=== PATIENT | female | born 1955 | race African-American/Black ===

== ENCOUNTER 2022-04-04 12:13 | Inpatient (IN) | payer OTHER ==
[~2022-04-04] VITALS: Ht 160 cm; Wt 63.5 kg
[2022-04-04 12:33] VITALS: BP_SYST 236
[2022-04-04 13:07] LABS: HEMOGLOBIN 14.5 g/dL (12.0-16.0); MEAN CORPUSCULAR HEMOGLOBIN 26 pg (27-31); MEAN CORPUSCULAR HGB CONC 34 % (32-36); MEAN CORPUSCULAR VOLUME 76 fL (79.0-98.0); PLATELET COUNT (AUTO) 196 K/uL (130-430); RED BLOOD CELL COUNT(AUTO) 5.69 MIL/uL (4.2-6.2); RED CELL DISTRIBUTION WIDTH 17.6 % (9.0-15.0)
[2022-04-04 13:08] LABS: WHITE BLOOD COUNT (AUTO) 6.4 K/uL (4.8-10.8)
[2022-04-04 13:17] LABS: ANION GAP 11 (5-15); CALCIUM 9.9 mg/dL (8.4-11.0); CHLORIDE 103 mmol/L (98-107); CREATININE 0.82 mg/dL (0.55-1.30); GLUCOSE 88 mg/dL (70-99); UREA NITROGEN, BLOOD 21 mg/dL (8-21)
[2022-04-04 13:26] LABS: ALANINE AMINOTRANSFERASE 29 U/L (12-78); ASPARTATE AMINOTRANSFERASE 25 U/L (10-37); GFR AFRICAN AMERICAN 89 mL/min (>90); TOTAL BILIRUBIN 0.9 mg/dL (0.0-1.0)
[2022-04-04] MEDS ORDERED: hydrALAZINE HCL 20 MG/ML VIAL IVP ONE ×2 (13:30→16:00)
[2022-04-04 13:50] LABS: ATYPICAL LYMPHOCYTES % 0 % (0-0); BAND % (MANUAL) 0 % (0-6); BASOPHILS % (MANUAL) 0 % (0-2); EOSINOPHILS % (MANUAL) 0 % (0-7); LYMPHOCYTES % (MANUAL) 32 % (20-46); MONOCYTES % (MANUAL) 12 % (0-11)
[2022-04-04 14:33] LABS: BILIRUBIN,URINE NEGATIVE (NEGATIVE); BLOOD, URINE NEGATIVE (NEGATIVE); CLARITY/URINE CLEAR (CLEAR); COLOR,URINE YELLOW (YELLOW); GLUCOSE,URINE NEGATIVE (NEGATIVE); KETONES,URINE 1+ (NEGATIVE); LEUKOCYTE ESTERASE ,URINE NEGATIVE (NEGATIVE); NITRITE, URINE NEGATIVE (NEGATIVE); PH,URINE 5.5 (5.0-8.0); PROTEIN URINE TRACE (NEGATIVE); UROBILINOGEN,URINE 0.2 (0.2-1.0)
[2022-04-04 14:43] LABS: BACTERIA,URINE None Seen /HPF (None Seen); MUCUS,URINE None Seen /LPF (None Seen); RBC,URINE NONE SEEN /HPF (0-3); WBC,URINE 0-3 /HPF (0-3)
[2022-04-04] MEDS ORDERED: hydrALAZINE HCL 20 MG/ML VIAL IVP PRN ×2 (15:15→17:15)
[2022-04-04] MEDS ORDERED: amLODIPine BESYLATE 10 MG TABLET PO ONE (17:15)
[2022-04-04] MEDS ORDERED: hydrALAZINE HCL 25 MG TABLET PO ONE (17:15)
[2022-04-04 19:00] VITALS: BP_SYST 143
[2022-04-04] MEDS ORDERED: HYDR-4038 PO (19:29)
[2022-04-04] MEDS ORDERED: DICL75TA5 PO (19:31)
[2022-04-04] MEDS ORDERED: HYDR25TA4 PO (19:32)
[2022-04-04] MEDS ORDERED: BENA40TA89 PO (19:32)
[2022-04-04] MEDS ORDERED: LIP20 PO (19:33)
[2022-04-04] MEDS ORDERED: hydrALAZINE HCL 25 MG TABLET PO SCH (22:00)
[2022-04-05] VITALS: BP_SYST 146
[2022-04-05] MEDS ORDERED: ACETAMINOPHEN 325 MG TABLET PO PRN (03:45)
[2022-04-05] MEDS ORDERED: NALOXONE HCL 0.4 MG/ML AMP (NARCAN) IVP PRN ×2 (03:45)
[2022-04-05] MEDS ORDERED: HYDROcodone/ACETAMIN 5-325 MG TAB (NORCO/ VICODIN) PO PRN (03:45)
[2022-04-05] MEDS ORDERED: HYDROcodone/ACETAMIN 10-325 MG TAB PO PRN (03:45)
[2022-04-05] MEDS ORDERED: ONDANSETRON HCL 4 MG/2 ML VIAL IVP PRN (03:45)
[2022-04-05] MEDS ORDERED: hydrALAZINE HCL 25 MG TABLET PO SCH (06:00)
[2022-04-05] MEDS ORDERED: NORMAL SALINE 5 ML DISP.SYRIN IVF SCH (06:00)
[2022-04-05] MEDS: NORMAL SALINE 5 ML DISP.SYRIN IVF SCH ×3 (06:40→21:52)
[2022-04-05 08:00] VITALS: BP_SYST 150
[2022-04-05 08:13] LABS: CREATININE 0.84 mg/dL (0.55-1.30)
[2022-04-05 08:36] LABS: HEMATOCRIT 40.4 % (36-48); HEMOGLOBIN 13.3 g/dL (12.0-16.0); MEAN CORPUSCULAR HEMOGLOBIN 25 pg (27-31); MEAN CORPUSCULAR HGB CONC 33 % (32-36); MEAN CORPUSCULAR VOLUME 75 fL (79.0-98.0); PLATELET COUNT (AUTO) 201 K/uL (130-430); RED BLOOD CELL COUNT(AUTO) 5.36 MIL/uL (4.2-6.2); RED CELL DISTRIBUTION WIDTH 17.4 % (9.0-15.0)
[2022-04-05] MEDS: DICLOFENAC SODIUM 25 MG TABLET.DR PO SCH ×2 (09:09→20:08)
[2022-04-05] MEDS: amLODIPine BESYLATE 10 MG TABLET PO SCH (09:10)
[2022-04-05] MEDS: lisinopriL 20 MG TABLET PO SCH ×2 (09:11→20:08)
[2022-04-05] MEDS: HYDROCHLOROTHIAZIDE 25 MG TABLET (HCTZ) PO SCH (09:11)
[2022-04-05 10:00] LABS: WHITE BLOOD COUNT (AUTO) 6.5 K/uL (4.8-10.8)
[2022-04-05 12:00] VITALS: BP_SYST 144
[2022-04-05 15:03] LABS: ATYPICAL LYMPHOCYTES % 0 % (0-0); BAND % (MANUAL) 0 % (0-6); BASOPHILS % (MANUAL) 0 % (0-2); EOSINOPHILS % (MANUAL) 2 % (0-7); LYMPHOCYTES % (MANUAL) 38 % (20-46); MONOCYTES % (MANUAL) 9 % (0-11)
[2022-04-05] MEDS: hydrALAZINE HCL 25 MG TABLET PO SCH ×2 (15:45→21:51)
[2022-04-05 16:00] VITALS: BP_SYST 142
[2022-04-05 19:48] VITALS: BP_SYST 137
[2022-04-05] MEDS ORDERED: ATORVASTATIN 20 MG TABLET PO SCH (21:00)
[2022-04-05 23:36] VITALS: BP_SYST 142
[2022-04-06] MEDS: hydrALAZINE HCL 25 MG TABLET PO SCH ×2 (06:09→14:22)
[2022-04-06] MEDS: NORMAL SALINE 5 ML DISP.SYRIN IVF SCH ×2 (06:09→14:23)
[2022-04-06 07:55] LABS: HEMATOCRIT 40.7 % (36-48); HEMOGLOBIN 13.5 g/dL (12.0-16.0); MEAN CORPUSCULAR HEMOGLOBIN 25 pg (27-31); MEAN CORPUSCULAR HGB CONC 33 % (32-36); MEAN CORPUSCULAR VOLUME 75 fL (79.0-98.0); PLATELET COUNT (AUTO) 207 K/uL (130-430); RED BLOOD CELL COUNT(AUTO) 5.42 MIL/uL (4.2-6.2); RED CELL DISTRIBUTION WIDTH 17.3 % (9.0-15.0)
[2022-04-06 08:00] VITALS: BP_SYST 140
[2022-04-06 08:13] LABS: CALCIUM 9.1 mg/dL (8.4-11.0); CREATININE 0.95 mg/dL (0.55-1.30); PHOSPHORUS 4.4 mg/dL (2.7-4.5)
[2022-04-06 08:50] LABS: WHITE BLOOD COUNT (AUTO) 5.4 K/uL (4.8-10.8)
[2022-04-06] MEDS: DICLOFENAC SODIUM 25 MG TABLET.DR PO SCH (09:04)
[2022-04-06] MEDS: lisinopriL 20 MG TABLET PO SCH (09:04)
[2022-04-06] MEDS: amLODIPine BESYLATE 10 MG TABLET PO SCH (09:05)
[2022-04-06] MEDS: HYDROCHLOROTHIAZIDE 25 MG TABLET (HCTZ) PO SCH (09:05)
[2022-04-06 12:00] VITALS: BP_SYST 144
[2022-04-06] MEDS ORDERED: NOR10 PO (12:32)
[2022-04-06] MEDS ORDERED: HYDR-4038 PO (12:32)
[2022-04-06 13:07] VITALS: BP_SYST 144
[2022-04-06 14:51] LABS: BAND % (MANUAL) 0 % (0-6)
[2022-04-06 14:52] LABS: ATYPICAL LYMPHOCYTES % 0 % (0-0); BASOPHILS % (MANUAL) 0 % (0-2); EOSINOPHILS % (MANUAL) 1 % (0-7); LYMPHOCYTES % (MANUAL) 43 % (20-46); MONOCYTES % (MANUAL) 5 % (0-11)
== END 2022-04-06 14:30 | disposition home or self-care (01) | DRG 78 ==
LOC: SED 12:13 → STU 15:14
PROVIDERS: ADMIT Internal Medicine; ATTEND Internal Medicine
PROC: 4A00X4Z Measurement of Central Nervous Electrical Activity, External Approach (ICD-10-PCS; principal; 2022-04-04)
DX: I67.4 Hypertensive encephalopathy (principal); I16.1 Hypertensive emergency; I10 Essential (primary) hypertension; R41.3 Other amnesia; R00.1 Bradycardia, unspecified; Z20.822 Contact with and (suspected) exposure to COVID-19; Z79.899 Other long term (current) drug therapy
CPT/HCPCS: 36415; 70450-TC; 71045; 76376; 80048; 80053; 81000; 83735; 84100; 84484; 85007; 85027; 93005; 93306; 95816; G0378; J0360